=== PATIENT | female | born 1995 | race American Indian/Alaskan Native ===

== ENCOUNTER 2019-11-05 17:03 | Emergency (ER) | payer BC ==
--- NOTE | 2019-11-05 18:12 | Emergency Department Report ---
Blank Doc - Documentation Documentation: 24-year-old female that presents with right ankle pain and swelling x1 day. S tated has twisted it yesterday. Exam: right ankle tenderness with swelling. This initial assessment/diagnostic orders/clinical plan/treatment(s) is/are subject to change based on patient's health status, clinical progression and re- assessment by fellow clinical providers in the ED. Further treatment and workup at subsequent clinical providers discretion. Patient/guardians urged not to elope from the ED as their condition may be serious if not clinically assessed and managed. Initial orders include: 1- Patient sent to [facility] for further evaluation and treatment 2- xrays
--- NOTE | 2019-11-05 19:43 | XRay Report ---
RIGHT ANKLE, 3 VIEWS INDICATION / CLINICAL INFORMATION: Trauma. COMPARISON: None available. FINDINGS: There is mild lateral soft tissue swelling but no visible fracture or dislocation. Ankle mortise is m aintained. IMPRESSION: Mild lateral soft tissue swelling consistent with sprain. No visible fracture. Signer Name: Roopa Salgado MD Signed: 11/05/2019 7:39 PM Workstation Name: [id number]
--- NOTE | 2019-11-05 21:36 | Emergency Department Report ---
ED Lower Extremity HPI - General Chief Complaint: Extremity Injury, Lower Stated Complaint: RT ANKLE PAIN Time Seen by Provider: 11/05/19 18:11 Source: patient Mode of arrival: Ambulatory Limitations: No Limitations - History of Present Illness Initial Comments: 24-year-old -[place] female presents to the emergency room for pain and swelling to right ankle. Denies any injury. Patient reports that she works constantly on her feet she had both feet swollen the left leg improved but the right one did not. Patient reports she is taken naproxen which did not help. She had soaked in Epson salt and used ice with no relief. MD Complaint: other Onset/Timin -: days(s) Injury: Ankle: Right Type of Injury: unknown Place: work Severity scale (0 -10): 6 Improves With: rest Worsens With: weight bearing - Related Data Previous Rx's Medication Instructions Recorded Last Taken Type Ibuprofen [Motrin 600 MG tab] 600 mg PO Q8H PRN #30 tablet 11/05/19 Unknown Rx Allergies Allergy/AdvReac Type Severity Reaction Status Date / Time No Known Allergies Allergy Unverified 11/05/19 17:06 ED Review of Systems ROS: Stated complaint: RT ANKLE PAIN Other details as noted in HPI ED Past Medical Hx - Past Medical History Previous Medical History?: No - Surgical History Past Surgical History?: No - Social History Smoking Status: Never Smoker Substance Use Type: None - Medications Home Medications: Home Medications Medication Instructions Recorded Confirmed Last Taken Type Ibuprofen [Motrin 600 MG tab] 600 mg PO Q8H PRN #30 tablet 11/05/19 Unknown Rx ED Physical Exam - General Limitations: No Limitations ED Course Vital Signs 11/05/19 17:08 Temperature 98.4 F Pulse Rate 89 Respiratory 18 Rate Blood Pressure 137/71 O2 Sat by Pulse 99 Oximetry ED Lower Extremity MDM - Radiology Data Radiology results: report reviewed Referring Physician:CHARLIE OBREGONPatient Name:ARIK ZHONGPatient ID:[id number] of :[id number]:FemaleAccession:[id number] Date:[id number] Status:Finalized Findings [facility] [address] [place] [address] XRay Report Signed Patient: ARIK ZHONG MR#: [id number] : 1995 Acct:[id number] Age/Sex: 24 / F ADM Date: 11/05/19 Loc: ED Attending Dr: Ordering Physician: CHARLIE OBREGON NP Date of Service: 11/05/19 Procedure(s): XR ankle 3+V RT Accession Number(s): [id number] cc: CHARLIE OBREGON NP Fluoro Time In Minutes: RIGHT ANKLE, 3 VIEWS INDICATION / CLINICAL INFORMATION: Trauma. COMPARISON: None available. FINDINGS: There is mild lateral soft tissue swelling but no visible fracture or dislocation. Ankle mortise is maintained. IMPRESSION: Mild lateral soft tissue swelling consistent with sprain. No visible fracture. Signer Name: Roopa Salgado MD Signed: 11/05/2019 7:39 PM Workstation Name: [id number] Transcribed By: Dictated By: Roopa Salgado MD Electronically Authenticated By: Roopa Salgado MD Signed Date/Time: 11/05/191938 DD/ 37 TD/TT: - Medical Decision Making 24-year-old -[place] female presents to the emergency room for pain and swelling to right ankle. Denies any injury. Patient reports that she works constantly on her feet she had both feet swollen the left leg improved but the right one did not. Patient reports she is taken naproxen which did not help. She had soaked in Epson salt and used ice with no relief. X-ray is negative for any acute findings. Will place patient in Justin bandage. Encouraged to take ibuprofen 6 to 800 mg 3 times a day for the next 3 days and elevate. Patient verbalized understanding Critical care attestation.: If time is entered above; I have spent that time in minutes in the direct care of this critically ill patient, excluding procedure time. ED Disposition Clinical Impression: Right ankle sprain Qualifiers: Encounter type: initial encounter Involved ligament of ankle: unspecified ligament Qualified Code(s): S93.401A - Sprain of unspecified ligament of right ankle, initial encounter Disposition: TO HOME OR SELFCARE Is pt being admited?: No Does the pt Need Aspirin: No Condition: Stable Instructions: Ankle Sprain (ED) Additional Instructions: Encouraged to take ibuprofen 600 to 800 mg 3 times a day for the next 3 days and elevate. Prescriptions: Ibuprofen [Motrin 600 MG tab] 600 mg PO Q8H PRN #30 tablet PRN Reason: Pain Referrals: PRIMARY CARE, [Primary Care Provider] - 3-5 Days Forms: Work/School Release Form(ED)
[2019-11-05 21:59] VITALS: BP 124/72
== END 2019-11-05 21:59 | disposition home or self-care (01) ==
LOC: ED 17:03
DX: S93.401A Sprain of unspecified ligament of right ankle, initial encounter (principal); X58.XXXA Exposure to other specified factors, initial encounter; Y93.89 Activity, other specified; Y92.89 Other specified places as the place of occurrence of the external cause; Y99.8 Other external cause status
CPT/HCPCS: 99283